=== PATIENT | male | born 1980 | race Caucasian/White ===

== ENCOUNTER 2021-05-20 19:32 | Emergency (ER) | payer BC, SELFPAY ==
--- NOTE | ~2021-05-20 | XR_ITS ---
XR toe 1st LT min 2V 05/20/2021 20:39 Indication: Nail puncture wound first digit Procedure: 4 views left first finger Comparison: No prior studies for comparison. 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 No fracture, subluxation or dislocation. No s ignificant soft tissue abnormality. No foreign body. Impression: 1: No acute bone or joint abnormality. Reviewed, dictated and finalized at location A. Impression: 1: No acute bone or joint abnormality.
[2021-05-20 19:50] VITALS: BP 138/96; PULSE 103; RESP 20; TEMP 36.4; O2SAT 97
--- NOTE | 2021-05-20 20:13 | ED.WOUNDLAC ---
HPI - Wound/Laceration General Chief Complaint: Wound/Laceration Stated Complaint: L foot injury, stepped on nail last night Time Seen by Provider: 05/20/21 19:52 Source: patient and RN notes reviewed Mode of arrival: ambulatory Limitations: no limitations History of Present Illness Onset (ago): day(s) (1) Extremity Location: Left: foot Place: outdoors Patient tetanus UTD: No Context: accidental Associated symptoms: pain Related Data Allergies Allergy/AdvReac Type Severity Reaction Status Date / Time No Known Allergies Allergy Verified 05/20/21 20:00 Review of Systems Review of Systems: All systems reviewed & are unremarkable except as noted in HPI and below Musculoskeletal: Comments: left great toe plantar nail puncture wound, minimal dorsal swelling. [facility] Past Medical History Medical History (Updated 05/20/21 @ 20:55 by Nathalie Davenport MD) Medical history non-contributory Exam Const: General: no acute distress Nutritional Appearance: well nourished Orientation/consciousness: patient oriented x3 HENMT: Head: normal to inspection Ears: external ears normal and TM's normal bilaterally General nose exam: Normal external nose present and Normal nares present Mouth: Yes moist mucous membranes Eyes: Conjunctivae: conjunctivae normal Pupils: Equal, round and reactive pupils present EOM: EOMs intact bilaterally Neck: Neck: normal visual inspection Chest: Chest palpation & inspection: normal inspection of the chest Resp: Effort & Inspection: normal respiratory effort Auscultation: clear to auscultation bilaterally Cardio: Rate: regular rate Rhythm: regular rhythm GI: GI Palp: Yes Soft to palpation Percussion: Yes normal to percussion Auscultation: normal bowel sounds Back/Spine/Pelvis: Back: no CVA tenderness Skin: General skin exam: normal color Rashes: no rashes Neuro: General: patient oriented x3, moves all extremities, no focal motor deficits and CN's II-XI intact bilaterally Extrem: Other: Left great toe plantar puncture wound with no acute tenderness, redness or swelling. minimal medial dorsal swelling and tenderness. no acute redness or deformity. Psych: Appearance: grossly normal and well kempt Mental Status: mental status grossly normal Affect: normal affect Thought content: Yes Normal thought content present Course Course Emergency Course: Stable pt with less pain. Reevaluation(s) Date: 05/20/21 Time: 20:11 Vital Signs Vital signs: Vital Signs Temperature 36.4 C 05/20/21 19:50 Pulse Rate 103 H 05/20/21 19:50 Respiratory Rate 20 05/20/21 19:50 Blood Pressure 138/96 H 05/20/21 19:50 Pulse Oximetry 97 05/20/21 19:50 Temperature 36.4 C 05/20/21 19:50 Pulse Rate 103 H 05/20/21 19:50 Respiratory Rate 20 05/20/21 19:50 Blood Pressure 138/96 H 05/20/21 19:50 Pulse Oximetry 97 05/20/21 19:50 MDM - Wound/Laceration Differential Diagnosis Differential diagnosis: Likely other (left foot puncture wound) Imaging Data Radiologist's impression: See report. Critical Care Time Critical Care Time Critical Care Time: No Total Critical Care Time: 0 Discharge Plan Discharge Clinical Impression: Puncture wound Patient Disposition: Home, Self-Care Condition: Stable Instructions: Antibiotic Form, Puncture Wound (ED) Additional Instructions: Home. May RTC prn. PMD in 1-2 days. Rx below. Off work x 2 days. Prescriptions: New levofloxacin 750 mg tablet 750 mg PO DAILY Qty: 7 RF: 0 ibuprofen 800 mg tablet 800 mg PO TID Qty: 20 RF: 0 omeprazole magnesium [Prilosec OTC] 20 mg tablet,delayed release (DR/EC) 20 mg PO BID Qty: 20 RF: 0 Follow-up/Referrals: Amanda,MD Bran [Primary Care Provider] - Time of Disposition: 20:58
[2021-05-20] MEDS: TETANUS,DIPHTHERIA,AC PERTUSSIS ADULT 0.5 ML (ADACEL) IM (20:22)
[2021-05-20] MEDS: IBUPROFEN 600 MG TABLET (20:23)
[2021-05-20] MEDS: cefTRIAXone 1 GM VIAL IM (20:25)
--- NOTE | 2021-05-20 20:26 | PC.NURSE ---
report to dimas philippe
[2021-05-20 21:11] VITALS: BP 132/88; PULSE 90; RESP 18; TEMP 36.6; O2SAT 98
== END 2021-05-20 21:12 | disposition home or self-care (01) ==
PROVIDERS: Emergency Provider Emergency Medicine; PCP Family Medicine
DX: S91.332A Puncture wound without foreign body, left foot, initial encounter (principal); W45.0XXA Nail entering through skin, initial encounter
CPT/HCPCS: 73660; 90471; 90715; 96372; 99283; A9270; J0696